=== PATIENT | male | born 1955 | race Caucasian/White ===

== ENCOUNTER 2017-11-26 11:06 | Emergency (ER) | payer OTHER ==
--- NOTE | 2017-11-26 12:43 | RAD ---
HISTORY: Left lower extremity edema COMPARISONS: None relevant TECHNIQUE: Multiple transverse and longitudinal ultrasound images were obtained of the left lower extremity from the level of the common femoral vein inferiorly through to the infrapopliteal veins using grayscale, color Doppler, and spectral Doppler imaging with and without compression and with augmentation. Comparison images were obtained of the contralateral common femoral vein. FINDINGS: VEINS: There is chronic appearing, muralized thrombus within one branch of the duplicated peroneal system. There is no extension to the popliteal or suprapopliteal deep venous system. The remainder of the venous system of the left lower extremity is compressible throughout its course, with normal flow on color Doppler imaging and normal response to augmentation on spectral Doppler imaging. SOFT TISSUES: Unremarkable. OTHER FINDINGS: None. IMPRESSION: CHRONIC APPEARING NONOCCLUSIVE THROMBUS OF A CALF VEIN WITHOUT EXTENSION TO THE POPLITEAL OR SUPRAPOPLITEAL DEEP VENOUS SYSTEM.
--- NOTE | 2017-11-26 13:39 | ED ---
Lower Extremity - HPI Summary HPI Summary: Patient here with left calf cramp 1 week. He reports he discussed this with his doctor today who sent him over for an ultrasound. He has a history of extensive DVT in this leg in 2013 which also extended into a pulmonary embolism. He was on Xarelto for 1 year for these unprovoked clots. Today, he denies swelling, redness or streaking of his left calf and denies chest pain or shortness of breath. He admits last time he had all of the symptoms. He was encouraged to take a daily aspirin however he has not been taking that the past few months as he had cervical surgery and has been taking Aleve daily. He was seen by Dr. Franco during his time of treatment. Furthermore, he denies steroid use in the past year however he did take a quinolone in August. 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 Denies trauma, smoking, history of cancer , family history of clots. No other symptoms to report. - History of Current Complaint Chief Complaint: EDExtremityLower Stated Complaint: POSSIBLE CLOT LT LEG-DR SENT Time Seen by Provider: 11/26/17 11:23 Hx Obtained From: Patient Pain Intensity: 0 - Allergies/Home Medications Allergies/Adverse Reactions: Allergies Allergy/AdvReac Type Severity Reaction Status Date / Time GLUTEN AdvReac Unknown Unknown Uncoded 11/26/17 11:08 Reaction Details PMH/Surg Hx/FS Hx/Imm Hx Previously Healthy: Yes Endocrine/Hematology History: Reports: Hx Coagulopothy - unprovoked DVT with PE in 2013 - unsure if tested for coagulopath? Denies: Hx Diabetes, Hx Thyroid Disease Cardiovascular History: Reports: Hx Angina - WITH SYNCOPE, Hx Syncope Denies: Hx Congestive Heart Failure, Hx Hypertension, Hx Pacemaker/ICD Comment Only: Other Cardiovascular Problems/Disorders - DVT LEFT LEG 12/2013 Respiratory History: Reports: Hx Pulmonary Embolism - 2013, Other Respiratory Problems/Disorders - FORMER SMOKER Denies: Hx Asthma, Hx Chronic Obstructive Pulmonary Disease (COPD) GI History: Reports: Hx Gastroesophageal Reflux Disease, Other GI Disorders - GERD , GLUTEN ALLERGIES Denies: Hx Ulcer History: Denies: Hx Renal Disease Musculoskeletal History: Reports: Hx Orthopedic Injury - RIB/CLAVICLE FX Sensory History: Reports: Hx Contacts or Glasses - AT HOME Denies: Hx Hearing Aid Opthamlomology History: Reports: Hx Contacts or Glasses - AT HOME Neurological History: Reports: Hx Migraine, Other Neuro Impairments/Disorders - 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 Multiple Ribs broken. SINUS SURGERY. HERNIA REPAIR Hx Anesthesia Reactions: No Infectious Disease History: No Infectious Disease History: Denies: Hx Clostridium Difficile, Hx Hepatitis, Hx Human Immunodeficiency Virus (HIV), Hx of Known/Suspected MRSA, Hx Shingles, Hx Tuberculosis, Hx Known/ Suspected VRE, Hx Known/Suspected VRSA, History Other Infectious Disease, Traveled Outside the [place] in Last 30 Days - Family History Known Family History: Positive: Cardiac Disease - mom w/ valve issue leading to CHF - Social History Occupation: Employed Full-time Alcohol Use: Occasionally Alcohol Amount: 1 PER WEEK Hx Substance Use: No Substance Use Type: Reports: None Hx Tobacco Use: Yes - not currently Smoking Status (MU): Former Smoker Have You Smoked in the Last Year: No Review of Systems Constitutional: Negative Eyes: Negative ENT: Negative Cardiovascular: Negative Respiratory: Negative Gastrointestinal: Negative Positive: no symptoms reported Positive: Myalgia. Negative: Arthralgia, Decreased ROM, Edema Skin: Negative Neurological: Negative Psychological: Normal All Other Systems Reviewed And Are Negative: Yes Physical Exam Triage Information Reviewed: Yes Vital Signs On Initial Exam: Initial Vitals Temp Pulse Resp BP Pulse Ox 97.9 F 90 14 140/84 98 11/26/17 11:10 11/26/17 11:10 11/26/17 11:10 11/26/17 11:10 11/26/17 11:10 Vital Signs Reviewed: Yes Appearance: Positive: Well-Appearing, No Pain Distress, Well-Nourished Skin: Positive: Warm, Skin Color Reflects Adequate Perfusion, Dry - no erythema , no ecchymosis, no lesions over posterior calf Head/Face: Positive: Normal Head/Face Inspection Eyes: Positive: EOMI ENT: Positive: Hearing grossly normal Respiratory/Lung Sounds: Positive: Breath Sounds Present Cardiovascular: Positive: Normal, RRR, Pulses are Symmetrical in both Upper and Lower Extremities, S1, S2. Negative: Leg Edema Left - Lt calf w/ mild TTP, Leg Edema Right Musculoskeletal: Positive: Normal, Strength/ROM Intact Neurological: Positive: Normal, Sensory/Motor Intact, Alert, Oriented to Person Place, Time, CN Intact II-III Psychiatric: Positive: Normal Diagnostics - Vital Signs Vital Signs Temp Pulse Resp BP Pulse Ox 11/26/17 11:30 111 95 11/26/17 11:10 97.9 F 90 14 140/84 98 - Laboratory Lab Statement: Any lab studies that have been ordered have been reviewed, and results considered in the medical decision making process. Lower Extremity Course/Dx - Course Course Of Treatment: U/S report: Chronic appearing nonocclusive thrombus in the calf vein without extension to the popliteal or super popliteal deep venous system. Discussed w/ Dr. Mccloud who reports this U/S is improved from previous in 2013 and pt had a clot in same vein then - with chronic appearance, does not appear to be new. Spoke w/ Dr. Austin who recommends repeat U/S in 3-5 days and f/u in their office after this week. Advised pt to restart ASA and f/u as directed. Danger s/sx reviewed. Pt agrees w/ plan. - Diagnoses Provider Diagnoses: Chronic deep vein thrombosis (DVT) of left lower extremity Discharge - Sign-Out/Discharge Documenting (check all that apply): Discharge - Discharge Plan Condition: Stable Disposition: HOME Patient Education Materials: Deep Vein Thrombosis (ED) Referrals: Gabino Austin MD [Medical Doctor] - Additional Instructions: A clot in your left calf appears to be chronic and in a vein it was found and in 2013. It is suspected this is not a new finding however it is important you follow-up with a repeat ultrasound in the next 3-5 days as well as follow-up with the hematology oncology department. Call Tuesday to schedule this repeat ultrasound through your PCP's office and schedule appointment with Dr. Llanes same day as ultrasound or the very next day to review results. Restart aspirin 325 mg daily Stay hydrated Stay active Monitor for danger signs and symptoms such as redness, swelling, streaking, worsening of pain, chest pain, shortness of breath, fever or back pain, bloody cough. If any of these present, return to the emergency department. - Billing Disposition and Condition Condition: STABLE Disposition: HOME
[2017-11-26 14:02] VITALS: BP 135/90
== END 2017-11-26 14:02 | disposition home or self-care (01) ==
LOC: ED 11:06
DX: I82.5Z2 Chronic embolism and thrombosis of unspecified deep veins of left distal lower extremity (principal); Z79.01 Long term (current) use of anticoagulants; Z86.711 Personal history of pulmonary embolism; I20.9 Angina pectoris, unspecified; R55 Syncope and collapse; K21.9 Gastro-esophageal reflux disease without esophagitis; Z87.891 Personal history of nicotine dependence
CPT/HCPCS: 99282

== ENCOUNTER 2018-09-13 19:46 | Observation (INO) | payer OTHER ==
[2018-09-13 22:02] LABS: ABS Basophils 0 10^3/ul (0-0.2); ABS Eosinophils 0.1 10^3/ul (0-0.6); ABS Lymphocytes 1.5 10^3/ul (1.0-4.8); ABS Monocytes 0.6 10^3/ul (0-0.8); ABS Neutrophils 5.8 10^3/ul (1.5-7.7); ABS Nucleated RBC 0 10^3/ul; Eosinophil % 0.8 %; Hematocrit 45 % (42-52); Hemoglobin 15.4 g/dl (14.0-18.0); Lymphocyte % 18.8 %; Mean Corpuscular HGB Conc 35 g/dl (31-36); Mean Corpuscular Hemoglobin 32 pg (27-31); Mean Corpuscular Volume 92 fL (80-94); Mean Platelet Volume 7.2 fL (7.4-10.4); Nucleated Red Blood Cells % 0; Platelet Count 228 10^3/ul (150-450); Red Blood Count 4.84 10^6/ul (4.00-5.40); Red Cell Distribution Width 13 % (10.5-15)
[2018-09-13 22:08] LABS: INR 0.99 (0.77-1.02)
[2018-09-13 22:17] LABS: Albumin 4.2 g/dL (3.2-5.2); Albumin/Globulin Ratio 1.8 (1-3); BUN/Creatinine Ratio 19.4 (8-20); Calcium 9.2 mg/dL (8.6-10.3); EGFR Non-African American 69.3 (>60); Globulin 2.4 g/dL (2-4); Potassium 3.7 mmol/L (3.5-5.0); Total Bilirubin 0.5 mg/dL (0.2-1.0); Total Protein 6.6 g/dL (6.4-8.9)
[2018-09-13] MEDS ORDERED: Iohexol 350* (CONTRAST) 500 ML MDV IV ONE (22:23)
--- NOTE | 2018-09-13 22:23 | ED ---
Lower Extremity - HPI Summary HPI Summary: 63-year-old male presents with left leg pain since returning from [facility]. He states he has history of blood clots. Has history of chronic DVT in this leg and history of PE. He states that a week ago he had shortness breath when climbing some stairs. He went to the hospital in [facility] and had an EKG which was normal. He states he stayed persistently tachycardic about 140s but that since resolved. He denies any chest pain or shortness of breath currently. He states this pain feels similar to when he had a dvt in the past. No fevers. The area feels warm. No injury. No numbness or tingling. He was worked up for coaguloapathy by dr crowe and one was not found. per patient dr crowe recommended warfarin next time as patient could not tolerate side effects of xarelto. is not a smoker. no family history of blood clots. - History of Current Complaint Chief Complaint: EDExtremityLower Stated Complaint: LEFT LEG POSSIBEL DVT Time Seen by Provider: 09/13/18 21:43 Pain Intensity: 2 - Allergies/Home Medications Allergies/Adverse Reactions: Allergies Allergy/AdvReac Type Severity Reaction Status Date / Time GLUTEN AdvReac Unknown Unknown Uncoded 09/13/18 19:57 Reaction Details Home Medications: Home Medications NK [No Home Medications Reported] 09/13/18 [History Confirmed 09/13/18] PMH/Surg Hx/FS Hx/Imm Hx Endocrine/Hematology History: Denies: Hx Diabetes, Hx Thyroid Disease Cardiovascular History: Reports: Hx Angina - WITH SYNCOPE, Hx Syncope Denies: Hx Congestive Heart Failure, Hx Hypertension, Hx Pacemaker/ICD Comment Only: Other Cardiovascular Problems/Disorders - DVT LEFT LEG 12/2013 Respiratory History: Reports: Hx Pulmonary Embolism - 2013, Other Respiratory Problems/Disorders - FORMER SMOKER Denies: Hx Asthma, Hx Chronic Obstructive Pulmonary Disease (COPD) GI History: Reports: Hx Gastroesophageal Reflux Disease, Other GI Disorders - GERD , GLUTEN ALLERGIES Denies: Hx Ulcer History: Denies: Hx Renal Disease Musculoskeletal History: Reports: Hx Orthopedic Injury - RIB/CLAVICLE FX Sensory History: Reports: Hx Contacts or Glasses - AT HOME Denies: Hx Hearing Aid Opthamlomology History: Reports: Hx Contacts or Glasses - AT HOME Neurological History: Reports: Hx Migraine, Other Neuro Impairments/Disorders - 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 Multiple Ribs broken. SINUS SURGERY. HERNIA REPAIR Hx Anesthesia Reactions: No Infectious Disease History: No Infectious Disease History: Reports: Traveled Outside the [place] in Last 30 Days Denies: Hx Clostridium Difficile, Hx Hepatitis, Hx Human Immunodeficiency Virus (HIV), Hx of Known/Suspected MRSA, Hx Shingles, Hx Tuberculosis, Hx Known/ Suspected VRE, Hx Known/Suspected VRSA, History Other Infectious Disease - Family History Known Family History: Positive: Cardiac Disease - mom w/ valve issue leading to CHF - Social History Alcohol Use: Occasionally Alcohol Amount: 1 PER WEEK Hx Substance Use: No Substance Use Type: Reports: None Hx Tobacco Use: Yes - not currently Smoking Status (MU): Former Smoker Have You Smoked in the Last Year: No Review of Systems Negative: Fever Negative: Chest Pain Negative: Shortness Of Breath Positive: Myalgia - left leg, Edema - left leg All Other Systems Reviewed And Are Negative: Yes Physical Exam Triage Information Reviewed: Yes Vital Signs On Initial Exam: Initial Vitals Temp Pulse Resp BP Pulse Ox 98.0 F 88 16 175/107 98 09/13/18 19:50 09/13/18 19:50 09/13/18 19:50 09/13/18 19:50 09/13/18 19:50 Vital Signs Reviewed: Yes Appearance: Positive: Well-Appearing Skin: Positive: Warm, Dry Head/Face: Positive: Normal Head/Face Inspection Eyes: Positive: Normal, Conjunctiva Clear ENT: Positive: Pharynx normal Respiratory/Lung Sounds: Positive: Clear to Auscultation, Breath Sounds Present Cardiovascular: Positive: Normal, RRR Musculoskeletal: Positive: Strength/ROM Intact - left leg, Edema Left - leg, Other - good pulses, tenderness left calf Neurological: Positive: Normal Psychiatric: Positive: Normal Diagnostics - Vital Signs Vital Signs Temp Pulse Resp BP Pulse Ox 09/13/18 19:50 98.0 F 88 16 175/107 98 - Laboratory Lab Results: Lab Results 09/13/18 09/13/18 Range/Units 21:01 21:01 WBC 8.0 (3.5-10.8) 10^3/ul RBC 4.84 (4.00-5.40) 10^6/ul Hgb 15.4 (14.0-18.0) g/dl Hct 45 (42-52) % MCV 92 (80-94) fL MCH 32 H (27-31) pg MCHC 35 (31-36) g/dl RDW 13 (10.5-15) % Plt Count 228 (150-450) 10^3/ul MPV 7.2 L (7.4-10.4) fL Neut % (Auto) 72.0 % Lymph % (Auto) 18.8 % [place]ult[place] % (Auto) 7.9 % Eos % (Auto) 0.8 % Baso % (Auto) 0.5 % Absolute Neuts (auto) 5.8 (1.5-7.7) 10^3/ul Absolute Lymphs (auto) 1.5 (1.0-4.8) 10^3/ul Absolute Monos (auto) 0.6 (0-0.8) 10^3/ul Absolute Eos (auto) 0.1 (0-0.6) 10^3/ul Absolute Basos (auto) 0 (0-0.2) 10^3/ul Absolute Nucleated RBC 0 10^3/ul Nucleated RBC % 0 INR (Anticoag Therapy) 0.99 (0.77-1.02) Result Diagrams: 09/13/18 21:01 09/13/18 21:01 Lab Statement: Any lab studies that have been ordered have been reviewed, and results considered in the medical decision making process. - CT cta CT Interpretation Completed By: Radiologist Summary of CT Findings: IMPRESSION: Acute pulmonary embolism involving multiple bilateral segmental branches. Acute. pulmonary embolism in bilateral main pulmonary artery. - Ultrasound No standard instances Ultrasound Interpretation Completed By: Radiologist Summary of Ultrasound Findings: IMPRESSION: Positive for extensive DVT from the proximal left femoral vein, popliteal veins. and the calf veins. - EKG No standard instances Cardiac Rate: NL EKG Rhythm: Sinus Rhythm EKG Comparison: No Significant Change Summary of EKG Findings: sinus rhythm Re-Evaluation - Re-Evaluation First Eval Re-Evaluation Time: 23:00 Comment: still no SOB or chest pain at this time Second Eval Re-Evaluation Time: 23:32 Comment: discussed results with patient Lower Extremity Course/Dx - Course Course Of Treatment: 63-year-old male presents with left leg pain since returning from [place] yesertday. He states he has history of blood clots and this feels similiar. He states that a week ago he had shortness breath when climbing some stairs and had resulting tachycardiac for a couple days. no active chest pain or SOB. No fevers. No injury. On exam has edema noted of left leg. warm to the touch. Ultrasound shows extensive DVT from proximal left femoral veins, popliteal veins and calf veins. CTA shows multiple bilateral segmental banches embolic and in bilateral main pulmonary artery. gave dose of lovenox. discussed with dr morrissey who will admit. - Diagnoses Differential Diagnosis/HQI/PQRI: Positive: Cellulitis, DVT, Sprain Provider Diagnoses: Deep vein thrombosis (DVT) of left lower extremity, Pulmonary embolism - Critical Care Time Critical Care Time: 30-74 min - 35 Discharge - Sign-Out/Discharge Documenting (check all that apply): Patient Departure - Discharge Plan Condition: Stable Disposition: ADMITTED TO [facility] Referrals: Nato Plascencia MD [Primary Care Provider] - - Billing Disposition and Condition Condition: STABLE Disposition: Admitted to [facility]
[2018-09-13] MEDS ORDERED: Enoxaparin(*) 100 MG/ML SYR SUBCUT ONE (23:25)
[2018-09-14] MEDS ORDERED: Warfarin TAB(*) 5 MG PO SCH (02:00)
[2018-09-14] MEDS ORDERED: Perflutren Lipid Microsphere* 3 ML VIAL ONE (08:38)
--- NOTE | 2018-09-14 08:53 | PN ---
Progress Note - Progress Note Date of Service: 09/14/18 SOAP: Patient well known to our service. 63 yo M w PMH of unprovoked PE in 2013 treated with ~18 months of xeralto. Hypercoag work up at the time negative. now presenting with recurrent extensive PE/DVT after trip to [place]. Currently on lovenox. Subjective: feels better this am though left leg still sore. not nearly as tense as yesterday. Reports he flew to [place] on 09/01. On 09/04 he developed SOB and palpitations after climbing stairs in [place] [employer]. Went to ER there and was tachycardic but this resolved and he was not admitted. He then climbed multiple other [employer] stairs without problems. Drove 4 hours to airport yesterday and noticed left calf pain. By end of [place] leg very swollen and tender prompting trip to ER here. doppler with extensive new DVT. Given history of PE had a CTA which showed new bilateral PEs (I have personally reviewed images with radiology to confirm these are new). He reports that he felt "lousy" on xeralto, though had no bleeding complications. Objective: Vital Signs Temp Pulse Resp BP Pulse Ox 98.6 F 75 16 133/73 96 09/14/18 03:09 09/14/18 03:09 09/14/18 03:09 09/14/18 03:09 09/14/18 03:09 sitting up in nad perr eomi op moist cta bl s1 s2 nl soft nt +Bs +LLE swelling and tenderness. warm, not tense A+O x 3, nonfocal neurological exam Laboratory Results - last 24 hr 09/13/18 09/13/18 09/13/18 21:01 21:01 21:01 WBC 8.0 RBC 4.84 Hgb 15.4 Hct 45 MCV 92 MCH 32 H MCHC 35 RDW 13 Plt Count 228 MPV 7.2 L Neut % (Auto) 72.0 Lymph % (Auto) 18.8 Rogers % (Auto) 7.9 Eos % (Auto) 0.8 Baso % (Auto) 0.5 Absolute Neuts (auto) 5.8 Absolute Lymphs (auto) 1.5 Absolute Monos (auto) 0.6 Absolute Eos (auto) 0.1 Absolute Basos (auto) 0 Absolute Nucleated RBC 0 Nucleated RBC % 0 INR (Anticoag Therapy) 0.99 APTT 29.0 Sodium 139 Potassium 3.7 Chloride 105 Carbon Dioxide 28 Anion Gap 6 BUN 21 Creatinine 1.08 Est GFR ( Amer) 83.8 Est GFR (Non-Af Amer) 69.3 BUN/Creatinine Ratio 19.4 Glucose 99 Calcium 9.2 Total Bilirubin 0.50 AST 21 ALT 30 Alkaline Phosphatase 55 Troponin I 0.00 B-Natriuretic Peptide Total Protein 6.6 Albumin 4.2 Globulin 2.4 Albumin/Globulin Ratio 1.8 09/13/18 21:01 WBC RBC Hgb Hct MCV MCH MCHC RDW Plt Count MPV Neut % (Auto) Lymph % (Auto) Rogers % (Auto) Eos % (Auto) Baso % (Auto) Absolute Neuts (auto) Absolute Lymphs (auto) Absolute Monos (auto) Absolute Eos (auto) Absolute Basos (auto) Absolute Nucleated RBC Nucleated RBC % INR (Anticoag Therapy) APTT Sodium Potassium Chloride Carbon Dioxide Anion Gap BUN Creatinine Est GFR ( Amer) Est GFR (Non-Af Amer) BUN/Creatinine Ratio Glucose Calcium Total Bilirubin AST ALT Alkaline Phosphatase Troponin I B-Natriuretic Peptide 15 Total Protein Albumin Globulin Albumin/Globulin Ratio Assessment: 63 yo M w PMH of prior unprovoked DVT/PE (saddle) now with a provoked but extensive DVT/PE. Given this he will likely require life long anticoagulation, which he is prepared for. He did not like the fatigue associated with xeralto but is willing to try eliquis, with the knowledge that if he feels poorly on this he could transition to coumadin (with a lovenox bridge). Given this he can start eliquis 10 mg po bid x 7 days at 9 pm tonight followed by 5 mg po bid. He should follow up with Dr. Llanes on 11:40 am main office. We reviewed the risks and side effects this at length, including bleeding, need to avoid NSAIDs and medical alert bracelet.
[2018-09-14] MEDS ORDERED: CHOLECALCIFEROL 10000 UNIT PO SCH (09:00)
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
--- NOTE | 2018-09-14 09:39 | PN ---
Subjective Date of Service: 09/14/18 Interval History: Admitted earlier for DVT and PE. started on lovenox seen by hematology. currently no chest pain, no palpitations, no shortness of breath. Objective Active Medications: Enoxaparin Sodium (Lovenox(*)) 90 mg SUBCUT Q12H [facility] Non-Formulary Medication (Cholecalciferol (Vitamin D3) [Vitamin D3]) 10,000 unit PO DAILY [facility] Last Admin: 09/14/18 07:39 Dose: Not Given Vital Signs - 8 hr 09/14/18 03:09 Temperature 98.6 F Pulse Rate 75 Respiratory 16 Rate Blood Pressure 133/73 (mmHg) O2 Sat by Pulse 96 Oximetry Oxygen Devices in Use Now: None Appearance: Sitting on bed, not in distress, eating breakfast. Eyes: PERRLA Respiratory: Clear to Auscultation Cardiovascular: RRR Abdominal: NL Sounds; No Tenderness; No Distention Extremities: - - left lower extremity with 1+ edema Skin: - Neurological: Alert and Oriented x 3 Result Diagrams: 09/13/18 21:01 09/13/18 21:01 Additional Lab and Data: Lab Results 09/13/18 09/13/18 Range/Units 21:01 21:01 WBC 8.0 (3.5-10.8) 10^3/ul RBC 4.84 (4.00-5.40) 10^6/ul Hgb 15.4 (14.0-18.0) g/dl Hct 45 (42-52) % MCV 92 (80-94) fL MCH 32 H (27-31) pg MCHC 35 (31-36) g/dl RDW 13 (10.5-15) % Plt Count 228 (150-450) 10^3/ul MPV 7.2 L (7.4-10.4) fL Neut % (Auto) 72.0 % Lymph % (Auto) 18.8 % Carolina % (Auto) 7.9 % Eos % (Auto) 0.8 % Baso % (Auto) 0.5 % Absolute Neuts (auto) 5.8 (1.5-7.7) 10^3/ul Absolute Lymphs (auto) 1.5 (1.0-4.8) 10^3/ul Absolute Monos (auto) 0.6 (0-0.8) 10^3/ul Absolute Eos (auto) 0.1 (0-0.6) 10^3/ul Absolute Basos (auto) 0 (0-0.2) 10^3/ul Absolute Nucleated RBC 0 10^3/ul Nucleated RBC % 0 INR (Anticoag Therapy) 0.99 (0.77-1.02) Assess/Plan/Problems-Billing Assessment: 63 year old Male here with recurrent DVT and PE. - Patient Problems (1) DVT (deep venous thrombosis) Current Visit: Yes Status: Acute Code(s): I82.409 - ACUTE EMBOLISM AND THOMBOS UNSP DEEP VN UNSP LOWER EXTREMITY SNOMED Code(s): 032951299 Comment: Left DVT recurrent (2) Pulmonary emboli Current Visit: Yes Status: Acute Code(s): I26.99 - OTHER PULMONARY EMBOLISM WITHOUT ACUTE COR PULMONALE SNOMED Code(s): 37287472 Comment: PE with Left DVT. in the past has had DVT/PE, used to be on xarelto- did not like the way it made him feel. seen by hematology, echo pending. concepciónley discharge later today depending on echo with luis alberto.
[2018-09-14] MEDS ORDERED: Enoxaparin(*) 100 MG/ML SYR SUBCUT SCH (11:00)
[2018-09-14 12:12] VITALS: BP 134/80
--- NOTE | 2018-09-14 12:58 | ECHO ---
Patient: BRIGHT ANG [facility] Rec#: [id number] : 1955 Date: 09/14/2018 Age: 63y Height: 160.02 cm / 63.0 in Weight: 93 kg / 205.0 lbs Sex: M BSA: 1.95 Room#: [facility] Admit Date#: 09/14/2018 Type: Inpatient Referring: Frankie Jarrett Reading: Jose L Gannon DO Auto Service Advisor: Raysa Machado RN RDCS CC: Nato Plascencia MD Transthoracic Echocardiogram Indication: Pulmonary embolism BP: 133/73 HR: 84 Rhythm: NSR Findings History: Chronic DVT, PE, syncope, former smoker Technical Comments: The study quality is fair. The study is technically limited due to the patient's smoking history. Left Ventricle: The left ventricular chamber size is normal. Mild concentric left ventricular hypertrophy is observed. Global left ventricular wall motion and contractility are within normal limits. There is normal left ventricular systolic function. The estimated ejection fraction is 55-60%. There is no consistent Doppler evidence of clinically significant diastolic dysfunction. Left Atrium: The left atrial chamber size is normal. Right Ventricle: The right ventricular chamber size and systolic function are within normal limits. Right Atrium: The right atrium is slightly dilated. Aortic Valve: The aortic valve is trileaflet. The aortic valve leaflets are mildly thickened. There is aortic annular calcification. There is no evidence of aortic regurgitation. There is no evidence of aortic stenosis. Mitral Valve: The mitral valve leaflets are mildly thickened. There is a trace of mitral regurgitation. There is no evidence of mitral stenosis. Tricuspid Valve: The tricuspid valve leaflets are normal. There is trace tricuspid regurgitation. Unable to estimate the right ventricular systolic pressure. There is no tricuspid stenosis. Pulmonic Valve: The pulmonic valve appears normal. There is a trace pulmonic regurgitation. There is no pulmonic stenosis. Pericardium: There is no significant pericardial effusion. Aorta: There is no dilatation of the ascending aorta. There is no dilatation of the aortic arch. There is no dilation of the aortic root. Pulmonary Artery: The main pulmonary artery is not well visualized. Venous: The inferior vena cava appears normal in size. There is a greater than 50% respiratory change in the inferior vena cava dimension. Contrast: Definity was used to optimize study. A total of 4 ml of diluted Definity was given IV to enhance endocardial border definiton. Conclusions The left ventricular chamber size is normal. Mild concentric left ventricular hypertrophy is observed. Global left ventricular wall motion and contractility are within normal limits. There is normal left ventricular systolic function. The estimated ejection fraction is 55-60%. The left atrial chamber size is normal. The right ventricular chamber size and systolic function are within normal limits. There is trace tricuspid regurgitation. Unable to estimate the right ventricular systolic pressure. Definity was used to optimize study. Compared to prior study from 01/2014, no clinically significant changes noted Measurements Name Value Normal Range RVIDd (AP) 2D 2.6 cm (0.9 - 2.6) RVDdMajor (2D) 3.6 cm (2.2 - 4.4) RAd ISD 4CH 5.1 cm (3.4 - 4.9) RA (A4C)W 4.1 cm (2.9 - 4.6) IVSd (2D) 1.1 cm (0.6 - 1) LVPWd (2D) 1.1 cm (0.6 - 1) LVIDd (2D) 3.8 cm (3.6 - 5.4) LVIDs (2D) 2.6 cm - LV FS (2D) 32 % (25 - 45) Aortic Annulus 2 cm (1.4 - 2.6) Ao root diameter (2D) 3.4 cm (2.1 - 3.5) Ascending Ao 3.1 cm (2.1 - 3.4) Aortic arch 2.6 cm (1.8 - 3.4) LA dimension (AP) 2D 3.6 cm (2.3 - 3.8) LAd ISD 4CH 5.3 cm (2.9 - 5.3) LA ISD 4CH W 4.1 cm (2.5 - 4.5) Name Value Normal Range LA ESV SP 4CH (A/L) 66 ml - LA ESV SP 2CH (A/L) 58 ml - LA ESV BP (A/L) 63 ml - LA ESV BP (A/L) index 32.2 ml/m2 - LA ESV SP 4CH (MOD) 59 ml - LA ESV SP 2CH (MOD) 55 ml - Name Value Normal Range MV E-wave Vmax 0.73 m/sec - MV deceleration time 153 msec - MV A-wave Vmax 0.72 m/sec - MV E:A ratio 1 ratio - LV septal e' Vmax 0.07 m/sec - LV lateral e' Vmax 0.09 m/sec - LV E:e' septal ratio 10.4 ratio - LV E:e' lateral ratio 8.1 ratio - Name Value Normal Range AV Vmax 1.1 m/sec - AV VTI 20.5 cm - AV peak gradient 4 mmHg - AV mean gradient 3 mmHg - LVOT Vmax 0.96 m/sec - LVOT VTI 17.1 cm - LVOT peak gradient 4 mmHg - LVOT mean gradient 2 mmHg - BOLA Vmax 0.64 m/sec - Name Value Normal Range IVC diameter 1.8 cm - Name Value Normal Range PV Vmax 0.77 m/sec -
--- NOTE | 2018-09-14 19:42 | DS ---
CC: Dr. Nato Plascencia; Dr. Marcos Llanes * DISCHARGE SUMMARY: DATE OF ADMISSION: 09/13/18. DATE OF DISCHARGE: 09/14/18. PRIMARY CARE PROVIDER: Dr. Nato Plascencia. MVA REACTOR OPERATOR HEAD: Dr. Marcos Llanes. REASON FOR ADMISSION: Shortness of breath, left calf pain and recent chest pressure. HOSPITAL COURSE: This is a 63-year-old male with past medical history of DVT/PE , who used to be on Xarelto in the past for this, hyperlipidemia. He has just flew back from [place] and now presented to the emergency room because of shortness of breath accompanying with chest pressure and tachycardia as well as left calf pain. On admission, the patient was found to have left lower extremity DVT as well as pulmonary embolism. The patient was started on Lovenox. Hematology consultation was obtained. [employer] Driver, Dr. Amber Doherty saw the patient, reviewed the patient's chart from outpatient. The patient willing to try Eliquis, had fatigue associated with Xarelto, so we will try the patient on Eliquis. Should he not like Eliquis, we can consider giving him Lovenox to Coumadin bridge based on the recommendations of Dr. Amber Doherty. The patient also had an echocardiogram done today, which showed right ventricular chamber size and systolic function are within normal limits. Left ventricular systolic function, EF is 55% to 60%. Left ventricular chamber size is normal. The patient did okay during the hospital course. Currently, he does not have any chest pain or shortness of breath, palpitations have also resolved. The patient is stable for discharge. DISCHARGE MEDICATIONS: Include we will continue the patient's vitamin D3 at 10, 000 units daily. New medication includes Eliquis 5 mg tablet, the patient to take 10 mg twice a day for 7 days followed by 5 mg twice a day. The patient to return to the emergency room for any shortness of breath, chest pain, palpitations, any bleeding, the patient made aware that side effects of Eliquis does include bleeding, should he have any blurry stools, dark colored stool, hematemesis, hematuria he should return to the emergency room. DISCHARGE INSTRUCTIONS: To follow up with the primary care provider in 1 to 2 weeks, the patient to follow up with Dr. Llanes on 10/04/17 at 11:40 a.m. at the main office, the patient to have activity as tolerated. DIET: Regular diet. CONDITION: Good. DISCHARGE DIAGNOSIS: 1. Left Deep Vein Thrombosis 2. Pulmonary Embolism 3. History of Hyperlipidemia Additional studies done during the hospital course also included EKG, which showed sinus rhythm. [id number]/[facility] #: [id number] MTDD
== END 2018-09-14 14:10 | disposition home or self-care (01) ==
LOC: ED 19:46 → MED 09-14 00:18
PROVIDERS: ADMIT Internal Medicine; ATTEND Internal Medicine
DX: I82.402 Acute embolism and thrombosis of unspecified deep veins of left lower extremity (principal); I26.99 Other pulmonary embolism without acute cor pulmonale; R06.02 Shortness of breath; M79.605 Pain in left leg; R07.9 Chest pain, unspecified; E78.5 Hyperlipidemia, unspecified; Z79.01 Long term (current) use of anticoagulants; Z87.891 Personal history of nicotine dependence
CPT/HCPCS: 36415; 71275; 80053; 83880; 84484; 85025; 85610; 85730; 93005; 93306; 96372; 99233; 99284; A9270-GY; C8929; G0378; J1650; Q9967